=== PATIENT | female | born 1980 | race Caucasian/White ===

== ENCOUNTER 2017-05-02 23:00 | Emergency (ER) | payer OTHER ==
[~2017-05-02] VITALS: Ht 172.7 cm; Wt 530.7 kg
[2017-05-03 00:08] LABS: URINE AMPHETAMINES < 1000 (1000ng/ml); URINE BARBITURATES < 200 (200ng/ml); URINE BENZODIAZEPINES > 200 (200ng/ml); URINE CANNABINOIDS (THC) < 50 (50ng/ml); URINE COCAINE > 300 (300ng/ml); URINE METHADONE < 300 (300ng/ml); URINE OPIATES < 300 (300ng/ml); URINE PHENCYCLIDINE < 25 (25ng/ml)
[2017-05-03] MEDS ORDERED: ZOFRAN ODT4 MG SL (01:09)
== END 2017-05-03 02:11 | disposition home or self-care (01) ==
LOC: ED 23:00
PROVIDERS: Physician Assistant
DX: S06.2X0A Diffuse traumatic brain injury without loss of consciousness, initial encounter (principal); F14.10 Cocaine abuse, uncomplicated; F17.200 Nicotine dependence, unspecified, uncomplicated; Y04.0XXA Assault by unarmed brawl or fight, initial encounter; Y93.89 Activity, other specified; Y92.89 Other specified places as the place of occurrence of the external cause; Y99.8 Other external cause status

== ENCOUNTER → 2018-01-06 | Outpatient (CLI) | payer OTHER ==
[~2018-01-06] MED LIST: ZOFRAN ODT4 MG SL
== END ==
LOC: RAD 11:21
DX: J45.909 Unspecified asthma, uncomplicated (principal); R50.9 Fever, unspecified

== ENCOUNTER → 2018-02-22 | Outpatient (CLI) | payer OTHER | END | disposition home or self-care (01) | LOC: RAD 12:53 | DX: M25.552 Pain in left hip (principal) ==

== ENCOUNTER 2019-08-10 19:15 | Emergency (ER) | payer OTHER ==
[~2019-08-10] VITALS: Ht 172.7 cm; Wt 77.1 kg
[2019-08-10] MEDS ORDERED: CETIRIZINE HYDR10 MG PO (19:20)
[2019-08-10] MEDS ORDERED: LOSARTAN-HCTZ1 EACH PO (19:20)
[2019-08-10] MEDS ORDERED: VENTOLIN 02.5 MG/3 M INH (19:20)
[2019-08-10] MEDS ORDERED: MONTELUKAST SOD10 MG PO (19:21)
[2019-08-10] MEDS ORDERED: GABAPENTIN400 MG PO (19:21)
[2019-08-10] MEDS ORDERED: FLUOXETINE HYDR20 M1 PO (19:21)
[2019-08-10] MEDS ORDERED: BUPROPION HCL150 M1 PO (19:22)
[2019-08-10] MEDS ORDERED: MELOXICAM7.5 MG PO (19:22)
[2019-08-10] MEDS ORDERED: PROAIR HFA8.5 GM INH (19:22)
[2019-08-10 20:27] LABS: BASO # 0.1 10*3/uL (0.0-0.1); BASO % 0.4 % (0.0-1.0); EOS # 0.2 10*3/uL (0.0-0.4); EOS % 0.9 % (1.0-4.0); HEMATOCRIT 42.8 % (37.0-47.0); HEMOGLOBIN 13.7 g/dl (12.0-16.0); LYMPH # 3.9 10*3/uL (1.3-4.4); LYMPH % 20.8 % (27.0-41.0); MEAN CELL VOLUME 84.3 fl (81.0-99.0); MEAN PLATELET VOLUME 9.5 fl (9.6-12.3); MONO # 1.4 10*3/uL (0.1-1.0); MONO % 7.2 % (3.0-9.0); NEUT # 13.1 10*3/uL (2.3-7.9); NEUT % 70.3 % (47.0-73.0); PLATELET COUNT AUTOMATED 505 10*3/uL (130-400); RED BLOOD COUNT 5.08 10*6/uL (4.10-5.10); RED CELL DISTRI WIDTH 14.5 % (0-14.5); WHITE BLOOD COUNT 18.7 10*3/uL (4.8-10.8)
[2019-08-10 20:46] LABS: ALBUMIN 4.1 gm/dl (3.1-4.5); ALKALINE PHOSPHATASE 118 U/L (45-117); BUN 19 mg/dl (7-24); CHLORIDE 103 mmol/L (98-107); CREATININE 0.81 mg/dL (0.55-1.02); POTASSIUM 3.8 mmol/L (3.5-5.1); SGOT/AST 15 IU/L (3-35); SGPT/ALT 38 U/L (12-78); SODIUM 136 mmol/L (136-145); TOTAL PROTEIN 8.2 gm/dL (6.4-8.2)
[2019-08-10] MEDS ORDERED: GUAIFEN-CODEIN118 ML PO (22:02)
== END 2019-08-10 22:22 | disposition home or self-care (01) ==
LOC: ED 19:15
PROVIDERS: Nurse Practitioner Family
DX: J06.9 Acute upper respiratory infection, unspecified (principal); R11.2 Nausea with vomiting, unspecified; J45.909 Unspecified asthma, uncomplicated; Z91.018 Allergy to other foods; Z79.899 Other long term (current) drug therapy

== ENCOUNTER 2019-11-10 11:38 | Emergency (ER) | payer OTHER ==
[~2019-11-10] VITALS: Ht 172.7 cm; Wt 77.1 kg
[~2019-11-10 11:38] MED LIST changes: +BUPROPION HCL150 M1 PO; +CETIRIZINE HYDR10 MG PO; +FLUOXETINE HYDR20 M1 PO; +GABAPENTIN400 MG PO; +GUAIFEN-CODEIN118 ML PO; +LOSARTAN-HCTZ1 EACH PO; +MELOXICAM7.5 MG PO; +MONTELUKAST SOD10 MG PO; +PROAIR HFA8.5 GM INH; +VENTOLIN 02.5 MG/3 M INH
[2019-11-10] MEDS ORDERED: PREDNISONE20 M1 PO (14:05)
== END 2019-11-10 13:57 | disposition home or self-care (01) ==
LOC: ED 11:38
DX: J45.901 Unspecified asthma with (acute) exacerbation (principal); Z79.2 Long term (current) use of antibiotics; Z91.018 Allergy to other foods; Z88.8 Allergy status to other drugs, medicaments and biological substances; Z79.899 Other long term (current) drug therapy